=== PATIENT | male | born 1990 | race Two or more races ===

== ENCOUNTER 2021-04-29 21:35 | Emergency (ER) | payer OTHER ==
[~2021-04-29] VITALS: Ht 180.3 cm; Wt 74.8 kg
[2021-04-29] MEDS ORDERED: CLINDAMYCIN HC300 MG PO (23:45)
[2021-04-29] MEDS ORDERED: NAPROXEN375 MG PO (23:45)
[2021-04-29] MEDS ORDERED: INTESTINEX680 M2 PO (23:45)
== END 2021-04-30 00:16 | disposition home or self-care (01) ==
LOC: ER 21:35
DX: S71.151A Open bite, right thigh, initial encounter (principal); W54.0XXA Bitten by dog, initial encounter; Y93.I9 Activity, other involving external motion; Y92.89 Other specified places as the place of occurrence of the external cause; Y99.8 Other external cause status